=== PATIENT | female | born 1965 | race Caucasian/White ===

== ENCOUNTER 2017-05-17 12:15 | Emergency (ER) | payer OTHER ==
[2017-05-17 12:19] VITALS: BP 175/85; PULSE 80; RESP 15; TEMP 98.4; O2SAT 98
--- NOTE | 2017-05-17 15:09 | RADRPT ---
EXAM DATE/TIME: 05/17/2017 13:45 [place] COMPARISON: No previous studies available for comparison. INDICATIONS : Pain post fall. MEDICAL HISTORY : None. SURGICAL HISTORY : None. ENCOUNTER: Initial ACUITY: 1 month PAIN SCORE: 10/10 LOCATION: Right Ankle. FINDINGS: Two view examination was performed of the right ankle. The bony structures are in normal alignment. No evidence of fracture, dislocation, or soft tissue swelling. No radiopaque foreign bodies are see n. Bony mineralization is normal. Inferior and posterior calcaneal spurs are present. CONCLUSION: 1. There is no evidence of acute fracture. Zander Lopez MD on May 17, 2017 at 15:06 Board Certified Radiologist. This report was verified electronically.
[2017-05-17] MEDS ORDERED: MELO-1 PO (15:50)
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
== END 2017-05-17 17:33 | disposition home or self-care (01) ==
LOC: NEPD 12:15
DX: M25.572 Pain in left ankle and joints of left foot (principal)
CPT/HCPCS: 73600; 99283; E0113; L1906